=== PATIENT | male | born 1960 | race Caucasian/White ===

== ENCOUNTER 2020-08-25 02:45 | Emergency (ER) | payer OTHER, BC ==
--- NOTE | 2020-08-25 03:00 | EDM.PDOC ---
ED HPI GENERAL MEDICAL PROBLEM - General Chief Complaint: Cardiovascular Problem Stated Complaint: CHEST PRESSURE/FEELS HOT Time Seen by Provider: 08/25/20 03:00 Source of Information: Reports: Patient History Limitations: Reports: No Limitations - History of Present Illness INITIAL COMMENTS - FREE TEXT/NARRATIVE: 60-year-old male presents to the ED for evaluation of central chest discomfort which seems to be transient and associated with a general sense of flushing throughout his body. He particularly notices in his head and face. He states was present mildly before going to bed about 2300 hrs. last night. He awoke to void and then was appreciating central chest discomfort about 0230 hours and elected to come to the ED. No associated shortness of breath. He denies cough or sputum production. 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 He has no headache. No nausea vomiting or diarrhea. He has a history of hypertension and high cholesterol. He is on 4 medications of which she can only remember two of them he knows it to them more for his blood pressure and none of them are new. He has been on them for months. He has no history of coronary disease. He is a never smoker. He has no history of asthma or diabetes. Initial blood pressure is elevated at 172/96. Onset: Gradual Onset Date: 08/24/20 Onset Time: 23:00 (Seem to go away and have allowed him to fall asleep until he walked out 0 to 30 hours to void and then appreciated the central chest pressure discomfort was there again. This associate with a flushed feeling in his head and neck. He has no defined fever.) Duration: Hour(s):, Intermittent, Waxing/Waning Location: Reports: Chest (Upper anterior chest with a mild pressure discomfort associate with flushed feeling in his head and neck.) Quality: Reports: Ache, Pressure (It is gone at the time he arrives in the ED.) Severity: Mild Improves with: Reports: Rest Worsens with: Reports: Other. Denies: None, Breathing, Cold Therapy, Eating, Heat Therapy Context: Denies: Activity (Happens worse with movement and walking.), Exercise, Lifting, Sick Contact, Trauma, Other Associated Symptoms: Reports: Chest Pain, Other. 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) (Flushed feeling in his head and neck like he is developing a fever none.) - Related Data Allergies Allergy/AdvReac Type Severity Reaction Status Date / Time No Known Allergies Allergy Verified 08/25/20 02:54 Home Meds: Home Meds Simvastatin 40 mg PO 08/25/20 [History] atenoloL [Atenolol] 50 mg PO 08/25/20 [History] Past Medical History Cardiovascular History: Reports: High Cholesterol, Hypertension Social & Family History - Living Situation & Occupation Occupation: Employed (Currently works here in the oil field.) ED ROS GENERAL - Review of Systems Review Of Systems: See Below Constitutional: Reports: Fatigue. Denies: Fever, Chills, Malaise, Weakness, Decreased Appetite, Weight Loss HEENT: Reports: No Symptoms Respiratory: Denies: Shortness of Breath, Wheezing, Pleuritic Chest Pain, Cough, Sputum Cardiovascular: Reports: Chest Pain, Blood Pressure Problem (Mild central chest discomfort. Seems to be transient), Lightheadedness. Denies: Claudication, Dyspnea on Exertion, Edema (And flushed feeling his head and neck.), Orthopnea ( hypertension for many years), Palpitations Endocrine: Reports: Fatigue GI/Abdominal: Reports: No Symptoms. Denies: Diarrhea, Nausea, Vomiting : Reports: No Symptoms Musculoskeletal: Reports: Back Pain Skin: Reports: No Symptoms (Case and a pause with low back pain.) Neurological: Reports: Other (Flushed feeling in head and neck.). Denies: Confusion, Dizziness, Headache, Numbness, Paresthesia, Pre-Existing Deficit, Seizure, Syncope, Tingling, Tremors, Trouble Speaking, Difficulty Walking, Weakness Psychiatric: Reports: No Symptoms Hematologic/Lymphatic: Reports: No Symptoms ED EXAM, GENERAL - Physical Exam Exam: See Below Exam Limited By: No Limitations General Appearance: Alert, WD/WN, Anxious, Mild Distress, Other (Temperature is 36.2 although he feels quite apple packing header his face but not so on the rest of his body. Heart rate was 71 and sinus respiratory 16 with O2 sats 98% room air BP mildly elevated 1 7296 on initial evaluation. It is currently 158/91.) Eye Exam: Bilateral Eye: Normal Inspection, PERRL Throat/Mouth: Normal Inspection, Normal Lips, Normal Teeth, Normal Oropharynx Head: Atraumatic, Normocephalic Neck: Normal Inspection, Supple, Non-Tender, Full Range of Motion. No: Lymphadenopathy (L), Lymphadenopathy (R) Respiratory/Chest: No Respiratory Distress, Lungs Clear, Normal Breath Sounds, No Accessory Muscle Use. No: Rales, Rhonchi, Wheezing Cardiovascular: Normal Peripheral Pulses, Regular Rate, Rhythm, No Edema, No Gallop, No Murmur, No Rub Peripheral Pulses: 3+: Carotid (L), Carotid (R), Posterior Tibial (L), Posterior Tibial (R), Dorsalis Pedis (L), Dorsalis Pedis (R) GI/Abdominal: Normal Bowel Sounds, Soft, Non-Tender, No Organomegaly, No Abno rmal Bruit, No Mass, Pelvis Stable, Other (No surgical scars.) Back Exam: Normal Inspection, Full Range of Motion. No: CVA Tenderness (L), CVA Tenderness (R) Extremities: Normal Inspection, Normal Range of Motion, Non-Tender, No Pedal Edema Neurological: Alert, Oriented, CN II-XII Intact, Normal Cognition, No Motor/Sensory Deficits Psychiatric: Normal Affect, Normal Mood (Face appears flushed and warm to palpation but the remainder of his body is cool and normal to touch.) Skin Exam: Dry, Intact, Normal Color, No Rash, Other EKG INTERPRETATION EKG Date: 08/25/20 Time: 02:52 Rhythm: NSR Rate (Beats/Min): 65 [place]: LAD-Left [place] Deviation (Mild left axis deviation -15 degrees) P-Wave: Present (Borderline first-degree AV block.) QRS: Other (Early R wave transition consider right ventricular appear to be versus septal hypertrophy pattern. Borderline criteria for left ventricular hypertrophy pattern. Tall R waves in lead I.) QT: Prolonged (Mildly prolonged) EKG Interpretation Comments: Abnormal ECG Course - Vital Signs Last Recorded V/S: Last Vital Signs Temp 36.2 C 08/25/20 02:55 Pulse 71 08/25/20 02:55 Resp 16 08/25/20 02:55 BP 172/96 H 08/25/20 02:55 Pulse Ox 98 08/25/20 02:55 - Orders/Labs/Meds Orders: Active Orders 24 hr Category Date Time Status Chest 1V Frontal [CR] Stat Exams 08/25/20 03:11 Taken Peripheral IV Insertion Adult [OM.PC] Stat Oth 08/25/20 03:12 Ordered Labs: Laboratory Tests 08/25/20 08/25/20 08/25/20 Range/Units 03:35 03:35 03:35 WBC 9.67 H (4.23-9.07) K/mm3 RBC 5.56 (4.63-6.08) M/mm3 Hgb 15.6 (13.7-17.5) gm/dl Hct 46.0 (40.1-51.0) % MCV 82.7 (79.0-92.2) fl MCH 28.1 (25.7-32.2) pg MCHC 33.9 (32.2-35.5) g/dl RDW Std Deviation 42.4 (35.1-43.9) fL Plt Count 270 (163-337) K/mm3 MPV 9.6 (9.4-12.3) fl Neut % (Auto) 53.8 (34.0-67.9) % Lymph % (Auto) 32.2 (21.8-53.1) % [place] % (Auto) 9.9 (5.3-12.2) % Eos % (Auto) 2.4 (0.8-7.0) Baso % (Auto) 0.7 (0.1-1.2) % Neut # (Auto) 5.20 (1.78-5.38) K/mm3 Lymph # (Auto) 3.11 (1.32-3.57) K/mm3 [place] # (Auto) 0.96 H (0.30-0.82) K/mm3 Eos # (Auto) 0.23 (0.04-0.54) K/mm3 Baso # (Auto) 0.07 (0.01-0.08) K/mm3 D-Dimer, Quantitative < 0.19 L (0.19-0.50) mg/L Sodium 140 (136-145) mEq/L Potassium 2.8 L (3.5-5.1) mEq/L Chloride 101 (98-107) mEq/L Carbon Dioxide 29 (21-32) mEq/L Anion Gap 12.8 (5-15) BUN 10 (7-18) mg/dL Creatinine 1.2 (0.7-1.3) mg/dL Est Cr Clr Drug Dosing TNP Estimated GFR (MDRD) > 60 (>60) mL/min BUN/Creatinine Ratio 8.3 L (14-18) Glucose 123 H (74-106) mg/dL Calcium 8.6 (8.5-10.1) mg/dL Magnesium 1.9 (1.8-2.4) mg/dl Total Bilirubin 1.7 H (0.2-1.0) mg/dL AST 17 (15-37) U/L ALT 32 (16-63) U/L Alkaline Phosphatase 86 (46-116) U/L Troponin I < 0.017 (0.00-0.056) ng/mL C-Reactive Protein 0.2 (<1.0) mg/dL Total Protein 7.3 (6.4-8.2) g/dl Albumin 3.5 (3.4-5.0) g/dl Globulin 3.8 gm/dL Albumin/Globulin Ratio 0.9 L (1-2) Meds: Medications Discontinued Medications Generic Name Dose Route Start Last Admin Trade Name Freq PRN Reason Stop Dose Admin Potassium Chloride 40 meq 08/25/20 04:41 08/25/20 05:03 Klor-Con M20 PO 08/25/20 04:42 40 meq ONETIME ONE Administration Sodium Chloride 10 ml 08/25/20 03:12 08/25/20 03:51 Saline Flush FLUSH 10 ml ASDIRECTED PRN Administration Keep Vein Open - Radiology Interpretation Free Text/Narrative:: 60-year-old male presents to the ED for evaluation of transient central chest discomfort which she described as a pressure. Seem to be associated with flushing in his head and neck. Was present before he went to bed about 2300 hrs. last night and when he woke up to void around 0 to 30 hours this morning he appreciated once again. It is gone at the time of examination the ED. He is on 4 different medications 2 of which are for his blood pressure and he cannot remember all the names. 1 is for high cholesterol. None of the medications are new for him. On examination ears nose and throat exam are normal. He does feel warm to palpation his head and neck but his body is cool and normal to touch. No cervical adenopathy. Air entry is equal to both lung nunn. No a dventitious sounds appreciated. Heart was sinus with no murmurs appreciated. The abdomen soft patient has no organomegaly or masses palpable and no abdominal tenderness that would be referred into his chest. Extremities are normal. He has noes worrisome signs for COVID-19 illness. Plan he will have a portable chest x-ray completed. ECG done by triage nurse shows sinus rhythm at 65/min with no signs of acute ischemic change. Routine labs including troponin and d- dimer to be done. - Re-Assessments/Exams Free Text/Narrative Re-Assessment/Exam: 08/25/20 04:00 chest x-ray done portably reveals borderline cardiomegaly. Lung nunn are clear with no parenchymal densities or infiltrates. No pleural effusion no pneumothorax.White count is 9.67 with normal differential at 53.8% neutrophils. Hemoglobin 15.6 with hematocrit of 46.0. Platelet count 270,000 08/25/20 04:20 D-dimer returned less than 0.19. Sodium 140 potassium slightly low at 2.8. Chloride 101 with a bicarb of 29. Anion gap is 12.8. BUN is 10 with a creatinine of 1.2. Estimated GFR is greater than 60. Glucose is 123. Calcium is 8.6. Magnesium 1.9 bilirubin 1.7 elevated AST is 17 with an ALT of 32 and alk phosphatase of 86. 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 Troponin I is less than 0.017. C-reactive protein 0.2. Total protein 7.3. Albumin fraction 3.5. 08/25/20 04:40 I have discussed the findings of the labs with the patient. Clinically there is no evidence of heart related illness. His low serum potassium level may be causing some issues. It is suspicious that he may well be on a diuretic as 1 of his blood pressure medications. Blood pressure overall does not seem to be well controlled. Systolics tend to stay between 165 and 175 and diastolics are always above 97. I suspect he would do better with amlodipine 10 mg once daily. I am suspicious that he is on hydrochlorothiazide as part of his 1 of his other blood pressure medications that he did not bring. It is likely the cause of his hypo-kalemia. He will look into this. In the meantime I will place him on Slow-K 40 mEq with breakfast this morning and again tonight at suppertime. We will arrange a follow-up appoint with his personal care physician in the near future 08/25/20 04:42 evaluation in the emergency room this morning in regards to awakening with a comfort in your upper anterior chest. It was present before he went to bed but seem to be worse after you awoke this morning. ECG does not show any signs of heart attack or abnormality of the rhythm. Similarly lab test proved no evidence of heart related illness. Your blood pressure clinically is not well controlled. Most of the systolic or top numbers of the blood pressure remain greater than 165-175. The lower number or the diastolic number remains elevated between 92 and 102. [place] blood pressure would be under 140 all the time on the top and under 90-85 on the bottom. The other finding was that of low serum potassium level at 2.8. Normal potassium should be 4.0. I suspect the other blood pressure medicine you are on contains hydrochlorothiazide a diuretic or water pill that is stealing the potassium from your bloodstream and pushing it through the kidneys. I therefore have given you a potassium supplement K. Dur 40 mEq to be taken with breakfast this morning and a second tablet to be taken with supper this tonight or with breakfast tomorrow morning. Suggest follow-up with your doctor in the near future and consider alternative blood pressure medication such as amlodipine 10 mg once daily and getting rid of the hydrochlorothiazide treatment plan Departure - Departure Time of Disposition: 04:45 Disposition: Home, Self-Care 01 Reason for Transfer *Q: Other Condition: Fair Clinical Impression: Atypical chest pain, Non-cardiac chest pain, Hypokalemia due to loss of potassium, Uncontrolled hypertension Instructions: Hypokalemia, Nonspecific Chest Pain, Adult, [id number], Hypertension, Adult, [id number] Referrals: PCP,Not In Area [Primary Care Provider] - Forms: ED Department Discharge Additional Instructions: Evaluation in the emergency room tonight in regards to upper chest discomfort that was present before going to bed and seem to wake you up around 0 to 30 hours this morning and remained uncomfortable and did not allow you to go back to sleep. You came to the ED to make sure that you are not suffering heart related illness. ECG shows sinus rhythm at 65/min with signs of the left heart wall being slightly enlarged and thickened secondary to blood pressure which I believe is not all that well controlled. There were no signs of heart attack. This was confirmed by lab test that were done with measurement of heart enzymes and they were all negative. The only finding on lab test was a low serum potassium level of 2.8 which I suspect is being lowered by diuretic or water medication being used for blood pressure control. This is most likely hydrochlorothiazide. The low serum potassium level could be making you feel ill and unwell. Suggest checking with your doctor to see if this medication could be placed with alternative blood pressure medication such as amlodipine 10 mg once daily. Your blood pressure was noted to be elevated throughout her stay in the emergency department with a systolic number averaging 165-175 in the lower number or diastolic number always greater than 90 typically 93-102. Suggest taking a potassium supplement Slow-K 40 mEq with breakfast this morning and repeat at supper tonight or first thing tomorrow morning with breakfast. Follow-up with your doctor in the near future to have blood pressure adjustments made. This time you are under no restrictions and may be as active as possible with no dietary changes. Sepsis Event Note (ED) - Evaluation Sepsis Screening Result: No Definite Risk - Focused Exam Vital Signs: Vital Signs Temp Pulse Resp BP Pulse Ox 08/25/20 02:55 36.2 C 71 16 172/96 H 98 - My Orders Last 24 Hours: My Active Orders 08/25/20 03:11 Chest 1V Frontal [CR] Stat 08/25/20 03:12 Peripheral IV Insertion Adult [OM.PC] Stat - Assessment/Plan Last 24 Hours: My Active Orders 08/25/20 03:11 Chest 1V Frontal [CR] Stat 08/25/20 03:12 Peripheral IV Insertion Adult [OM.PC] Stat
[2020-08-25] MEDS ORDERED: Sodium Chloride 0.9% 10 ML Syringe FLUSH PRN (03:12)
[2020-08-25] MEDS ORDERED: Potassium Chloride 20 MEQ Tab.ER PO ONE (04:41)
--- NOTE | 2020-09-28 09:04 | CR ---
PROCEDURE INFORMATION: Exam: XR Chest, 1 View Exam date and time: 08/25/2020 3:05 AM Age: 60 years old Clinical indication: Chest pain; Other: Recurring anterior chest discomfort TECHNIQUE: Imaging protocol: XR of the chest Views: 1 view. COMPARISON: No relevant prior studies available. FINDINGS: Lungs: Unremarkable. No consolidation. Pleural space: Unremarkable. No pleural effusion. No pneumothorax. Heart/Mediastinum: Unremarkable. No cardiomegaly. Bones/joints: Unremarkable. IMPRESSION: No acute findings. Thank you for allowing us to participate in the care of your patient. Dictated and Authenticated by: Mat Neal MD 09/21/2020 9:34 PM Central Time ([place] & [place]) JOHNNIE
== END 2020-08-25 05:05 | disposition home or self-care (01) ==
LOC: JD.ED 02:45
DX: R07.89 Other chest pain (principal); E87.6 Hypokalemia; I10 Essential (primary) hypertension; I44.0 Atrioventricular block, first degree
CPT/HCPCS: 36415; 71045; 80053; 83735; 84484; 85025; 85379; 86140; 99285; A9270; 93010; 99283

== ENCOUNTER 2022-05-11 13:00 | Emergency (ER) | payer BC, OTHER ==
[2022-05-11] MEDS ORDERED: Potassium Chloride 20 MEQ Tab.ER PO ONE (14:45)
== END 2022-05-11 15:20 | disposition home or self-care (01) ==
LOC: JD.ED 13:00
DX: M62.81 Muscle weakness (generalized) (principal); E87.6 Hypokalemia; M79.603 Pain in arm, unspecified; E78.00 Pure hypercholesterolemia, unspecified; I10 Essential (primary) hypertension; K21.9 Gastro-esophageal reflux disease without esophagitis; Z79.899 Other long term (current) drug therapy
CPT/HCPCS: 36415; 70450; 80053; 83735; 85025; 85610; 85730; 99284; A9270